=== PATIENT | female | born 1990 | race Caucasian/White ===

== ENCOUNTER 2016-07-12 07:30 | Inpatient (IN) | payer MEDICAID ==
[~2016-07-12] VITALS: Ht 160 cm; Wt 85.4 kg
[~2016-07-12 07:30] MED LIST: ACHD5005 PO; ACYC200C PO; ACYC400T21 PO; DCS100C PO; FERR-47 PO; Ibuprofen PO; LORA10TA7 PO; LORA5TAB9 PO; PREN-46 PO
[2016-09-16] MEDS ORDERED: FOLI0.4T2 PO (00:13)
[2016-09-16] MEDS ORDERED: CALC-308 PO (00:13)
[2016-10-13] MEDS ORDERED: METOCLOPRAMIDE INJ 10 MG/2 ML (REGLAN) ONE (02:17)
[2016-10-13] MEDS ORDERED: ceFAZolin 1,000 MG (ANCEF) VIAL ONE (02:18)
[2016-10-13] MEDS ORDERED: FAMOTIDINE 20MG/2ML IV (PEPCID) ONE (02:18)
[2016-10-13] MEDS ORDERED: CITRIC ACID/SOB CIT (BICITRA) 30 ML UDC ONE (02:18)
[2016-10-13] MEDS ORDERED: NS (IVPB) 50 ML ONE (02:18)
[2016-10-13] MEDS ORDERED: LACTATED RINGERS 1,000 ML IV PRN (06:11)
[2016-10-13] MEDS ORDERED: METOCLOPRAMIDE INJ 10 MG/2 ML (REGLAN) IV ONE (06:15)
[2016-10-13] MEDS ORDERED: CITRIC ACID/SOB CIT (BICITRA) 30 ML UDC PO ONE (06:15)
[2016-10-13] MEDS ORDERED: FAMOTIDINE 20MG/2ML IV (PEPCID) IV ONE (06:15)
[2016-10-13] MEDS ORDERED: CATHETER FLUSH 10 ML SYR IV PRN (06:15)
[2016-10-13] MEDS: LACTATED RINGERS 1,000 ML IV PRN ×2 (06:19→08:14)
[2016-10-13 06:37] LABS: BILIRUBIN,URINE NEGATIVE (NEGATIVE); KETONES,URINE NEGATIVE (NEGATIVE); LEUKOCYTE ESTERASE ,URINE NEGATIVE (NEGATIVE); NITRITE,URINE NEGATIVE (NEGATIVE); PH,URINE 6 (5-9); PROTEIN,URINE NEGATIVE (NEGATIVE); UROBILINOGEN,URINE NORMAL (NORMAL)
[2016-10-13 06:38] LABS: BASOPHILS % (AUTO) 0 % (0-10); EOSINOPHILS # (AUTO) 0.1 10^3/uL (0.0-0.3); EOSINOPHILS % (AUTO) 1 % (0-10); LYMPHOCYTES % (AUTO) 25 % (12-44); MEAN CORPUSCULAR HEMOGLOBIN 22 PG (25-34); MEAN CORPUSCULAR HGB CONC 31 G/DL (32-36); MEAN CORPUSCULAR VOLUME 71 FL (80-99); MEAN PLATELET VOLUME 10.2 FL (7.4-10.4); MONOCYTES # (AUTO) 0.5 X 10^3 (0.0-1.0); MONOCYTES % (AUTO) 6 % (0-12); NEUTROPHILS # (AUTO) 5.4 X 10^3 (1.8-7.8); NEUTROPHILS % (AUTO) 68 % (42-75); PLATELET COUNT 288 10^3/uL (130-400); RED BLOOD COUNT 4.34 10^6/uL (4.35-5.85); RED CELL DISTRIBUTION WIDTH 16.1 % (10.0-14.5)
[2016-10-13] MEDS ORDERED: OXYTOCIN/NORMAL SALINE 1,000 ML IV ONE (06:44)
[2016-10-13] MEDS ORDERED: fentaNYL INJECTION 100 MCG/2 ML AMP ONE (06:44)
[2016-10-13] MEDS ORDERED: ONDANSETRON 4 MG/2 ML (SDV) Z0FRAN ONE (06:44)
[2016-10-13 06:53] LABS: SQUAMOUS EPITHELIAL CELL,UR 0-2 /HPF; WBC,URINE RARE /HPF
[2016-10-13 07:00] VITALS: BP 131/79
--- NOTE | 2016-10-13 07:07 | Progress Note-Pre Operative ---
Pre-Operative Progress Note H&P Reviewed The H&P was reviewed, patient examined and no changes noted. Date H&P Reviewed: Oct 13, 2016 Time H&P Reviewed: 07:00 Pre-Operative Diagnosis: Previous section LIVIA LAZARO DO Oct 13, 2016 7:07 am
[2016-10-13] MEDS ORDERED: ceFAZolin 1 GM/NS 50 ML IVPB IV NR ×2 (08:15)
[2016-10-13] MEDS ORDERED: OXYTOCIN/NORMAL SALINE 500 ML IV SCH (08:21)
--- NOTE | 2016-10-13 08:23 | Cesarean Section Operative ---
Procedure Procedure Note Pre-operative Diagnosis: Milagro Arnold is a 26 /Para 3 /1 , Gestational Age 39 weeks for repeat section Post-operative Diagnosis: same Procedure: repeat low transverse section Physician: LIVIA LAZARO Checker Loader: LG Yanez Estimated blood loss: 400mL Disposition: stable Findings: Viable male infant, Apgars8/9 weight 7#6oz, intact placenta, 3vc, normal appearing uterus, tubes, and ovaries. Indications:Milagro Arnold is a 26 /Para 3 /1 ,Gestational Age 39 weeks for repeat section Procedure Details: The patient was seen in pre-op and the procedure was discussed with the patient in full, including the risks, benefits, and alternatives. All questions were answered. The patient was taken to the operating room and a time out was performed, verifying patient and procedure. After spinal anesthesia was placed by our anesthesia colleagues, the patient was placed in the dorsal supine with leftward tilt for uterine displacement.~ Her abdomen was then prepped and draped in the typical sterile fashion. A Pfannenstiel skin incision was made using a scalpel and carried down through the underlying fascia. The fascia was incised in the midline and tented up using Cleemnt clamps. On both the inferior and superior fascia side the rectus muscle was dissected off bluntly and sharply using Covington scissors. The peritoneum was identified and entered bluntly in the midline. This was then stretched laterally using manual strength. After entering the abdominal cavity and confirming lack of intraperitoneal adhesions, a large Dionicio retractor was placed and the lower uterine segment was visualized. A scalpel was utilized to make a low transverse uterine incision. Amniotomy was performed with an Allis clamp with return of clear fluid. The 's head was grasped and brought to the level of the incision and [id number] with assistance of the silastic suction. Fundal pressure was applied and was delivered without difficulty. Mouth and nares were suctioned with bulb suction. After the umbilical cord was clamped and cut, the was handed off to the pediatric staff. A sample of cord blood was then obtained. The placenta was delivered intact via uterine massage. The uterus was cleared of all clots and debris. The uterine incision was closed using 0 Vicryl in a running locked fashion. A second imbricated layer was placed using 0 Vicryl in a running fashion as well. The bilateral tubes and ovaries appeared normal. The abdominal gutters were cleared of all clots and debris. A final check of the uterine incision showed it to be hemostatic. The peritoneum was closed using 3- 0 Vicryl in a running fashion. The fascia was closed with 0 Vicryl in a running fashion. The subcutaneous space was hemostatic, and irrigated. The subcutaneous space was closed with 3-0 Vicryl in several single interrupted stitches. The skin was then closed using 4-0 Monocryl in a running subcuticular fashion. The skin edges were reapproximated together and were hemostatic. A pressure dressing was applied. All sponge, lap and needle counts were correct at the end of the procedure per nursing. Vitals - Labs Labs Laboratory Tests 10/13/16 06:20: Basophils # (Auto) 0.0, Basophils (%) (Auto) 0, Eosinophils # (Auto) 0.1, Eosinophils (%) (Auto) 1, Hematocrit 31L, Hemoglobin 9.6L, Lymphocytes # (Auto) 2.0, Lymphocytes (%) (Auto) 25, Mean Corpuscular Hemoglobin 22L, Mean Corpuscular Hemoglobin Concent 31L, Mean Corpuscular Volume 71L, Mean Platelet Volume 10.2, Monocytes # (Auto) 0.5, Monocytes (%) (Auto) 6, Neutrophils # (Auto ) 5.4, Neutrophils (%) (Auto) 68, Platelet Count 288, Red Blood Count 4.34L, Red Cell Distribution Width 16.1H, Urine Bacteria NEGATIVE, Urine Bilirubin NEGATIVE, Urine Casts NONE, Urine Clarity SLIGHTLY CLOUDY, Urine Color YELLOW, Urine Crystals NONE, Urine Culture Indicated NO, Urine Glucose (UA) NEGATIVE, Urine Ketones NEGATIVE, Urine Leukocyte Esterase NEGATIVE, Urine Mucus NEGATIVE , Urine Nitrite NEGATIVE, Urine Protein NEGATIVE, Urine RBC NONE, Urine RBC ( Auto) NEGATIVE, Urine Specific [place] 1.025H, Urine Squamous Epithelial Cells 0 -2, Urine Urobilinogen NORMAL, Urine WBC RARE, Urine pH 6, White Blood Count 8.0 LIVIA LAZARO DO Oct 13, 2016 08:23 -2, Urine Urobilinogen NORMAL, Urine WBC RARE, Urine pH 6, White Blood Count 8.0 LIVIA LAZARO DO Oct 13, 2016 08:23
[2016-10-13] MEDS ORDERED: IBUP-1773 PO (08:25)
[2016-10-13] MEDS ORDERED: HYDR-3729 PO (08:25)
[2016-10-13] MEDS ORDERED: ONDANSETRON 4 MG/2 ML (SDV) Z0FRAN IVP PRN (08:30)
[2016-10-13] MEDS ORDERED: TETANUS,DIPTH,PERTUSS P/F (BOOSTRIX) 0.5 ML VIAL IM SCH (08:30)
[2016-10-13] MEDS ORDERED: HYDROmorphone (DILAUDID) 2 MG/ML VIAL IVP PRN (08:30)
[2016-10-13] MEDS ORDERED: MEASLES,MUMPS,RUBELLA 1 EA INJ SC SCH (08:30)
[2016-10-13 09:50] VITALS: BP 116/81
[2016-10-13 11:00] VITALS: BP 120/76
[2016-10-13] MEDS: KETOROLAC 30 MG/ML VIAL IVP SCH ×2 (11:20→18:04)
[2016-10-13] MEDS ORDERED: CATHETER FLUSH 10 ML SYR IV SCH (14:00)
[2016-10-13] MEDS: HYDROcodone/APAP 5 MG/325 MG (LORTAB) TAB PO PRN ×2 (14:50→21:44)
[2016-10-13] MEDS: FERROUS SULF 325 MG (IRON) TAB PO SCH (18:04)
[2016-10-13 20:30] VITALS: BP 111/69
[2016-10-13] MEDS: DOCUSATE SODIUM 100 MG (COLACE) CAP PO SCH (21:43)
[2016-10-14] MEDS: KETOROLAC 30 MG/ML VIAL IVP SCH ×2 (00:09→06:20)
[2016-10-14 00:10] VITALS: BP 111/69
[2016-10-14] MEDS: DOCUSATE SODIUM 100 MG (COLACE) CAP PO SCH ×3 (02:51→21:00)
[2016-10-14] MEDS: HYDROcodone/APAP 5 MG/325 MG (LORTAB) TAB PO PRN ×3 (02:54→15:59)
[2016-10-14 04:00] VITALS: BP 104/71
[2016-10-14] MEDS ORDERED: METOCLOPRAMIDE INJ 10 MG/2 ML (REGLAN) IV ONE (04:30)
[2016-10-14] MEDS ORDERED: FAMOTIDINE 20MG/2ML IV (PEPCID) IV ONE (04:30)
[2016-10-14] MEDS ORDERED: CITRIC ACID/SOB CIT (BICITRA) 30 ML UDC PO ONE (04:30)
[2016-10-14] MEDS ORDERED: KETOROLAC 30 MG/ML VIAL ONE (06:07)
[2016-10-14 07:07] LABS: BASOPHILS % (AUTO) 0 % (0-10); EOSINOPHILS # (AUTO) 0.1 10^3/uL (0.0-0.3); EOSINOPHILS % (AUTO) 1 % (0-10); LYMPHOCYTES # (AUTO) 2.5 X 10^3 (1.0-4.0); LYMPHOCYTES % (AUTO) 26 % (12-44); MEAN CORPUSCULAR HEMOGLOBIN 23 PG (25-34); MEAN CORPUSCULAR HGB CONC 32 G/DL (32-36); MEAN CORPUSCULAR VOLUME 70 FL (80-99); MEAN PLATELET VOLUME 9.7 FL (7.4-10.4); MONOCYTES # (AUTO) 0.7 X 10^3 (0.0-1.0); MONOCYTES % (AUTO) 7 % (0-12); NEUTROPHILS # (AUTO) 6.3 X 10^3 (1.8-7.8); NEUTROPHILS % (AUTO) 65 % (42-75); PLATELET COUNT 238 10^3/uL (130-400); RED CELL DISTRIBUTION WIDTH 16.2 % (10.0-14.5); WHITE BLOOD COUNT 9.6 10^3/uL (4.3-11.0)
--- NOTE | 2016-10-14 08:26 | Progress Note-Standard ---
Standard Progress Note Progress Notes/Assess & Plan Progress/Assessment & Plan Patient doing well this AM. Pain well controlled. Ambulating and voiding freely. Lochia light. Denies lightheadedness/dizziness. Vital Signs 10/14/16 04:00 Temp 97.9 Pulse 82 Resp 18 B/P 104/71 Pulse Ox 97 O2 Delivery Room Air Laboratory Tests Test 10/14/16 06:50 Range/Units Basophils # (Auto) 0.0 0.0-0.1 10^3/uL Basophils (%) (Auto) 0 0-10 % Eosinophils # (Auto) 0.1 0.0-0.3 10^3/uL Eosinophils (%) (Auto) 1 0-10 % Hematocrit 27 L 35-52 % Hemoglobin 8.6 L 11.5-16.0 G/DL Lymphocytes # (Auto) 2.5 1.0-4.0 X 10^3 Lymphocytes (%) (Auto) 26 12-44 % Mean Corpuscular Hemoglobin 23 L 25-34 PG Mean Corpuscular Hemoglobin Concent 32 32-36 G/DL Mean Corpuscular Volume 70 L 80-99 FL Mean Platelet Volume 9.7 7.4-10.4 FL Monocytes # (Auto) 0.7 0.0-1.0 X 10^3 Monocytes (%) (Auto) 7 0-12 % Neutrophils # (Auto) 6.3 1.8-7.8 X 10^3 Neutrophils (%) (Auto) 65 42-75 % Platelet Count 238 130-400 10^3/uL Red Blood Count 3.80 L 4.35-5.85 10^6/uL Red Cell Distribution Width 16.2 H 10.0-14.5 % White Blood Count 9.6 4.3-11.0 10^3/uL Incision: c/d/i Diagnosis: POD 1 RLTCS Acute blood loss anemia (superimposed on anemia of ) P: Replace iron Continue routine po care. BURTON DOMINGUEZ DO Oct 14, 2016 08:26
[2016-10-14 08:31] VITALS: BP 112/73
[2016-10-14] MEDS: FERROUS SULF 325 MG (IRON) TAB PO SCH ×2 (09:15→18:00)
[2016-10-14] MEDS: IBUPROFEN 600 MG (MOTRIN) TAB PO SCH ×2 (11:06→17:58)
[2016-10-14 12:25] VITALS: BP 110/67
[2016-10-14 17:57] VITALS: BP 131/88
[2016-10-14 19:20] VITALS: BP 130/75
[2016-10-15 00:01] VITALS: BP 112/70
[2016-10-15] MEDS: IBUPROFEN 600 MG (MOTRIN) TAB PO SCH ×3 (06:15→12:34)
[2016-10-15 07:49] VITALS: BP 144/90
[2016-10-15] MEDS: DOCUSATE SODIUM 100 MG (COLACE) CAP PO SCH (07:51)
[2016-10-15] MEDS: HYDROcodone/APAP 5 MG/325 MG (LORTAB) TAB PO PRN (07:51)
[2016-10-15] MEDS: FERROUS SULF 325 MG (IRON) TAB PO SCH (07:51)
--- NOTE | 2016-10-15 08:18 | Discharge Inst-Women's Service ---
Discharge Inst-Women's Serv Depart Medication/Instructions New, Converted or Re-Newed RX: RX on Chart Consults/Follow Up Additional Follow Up: Yes Orders/Referrals Dr. Garcia in 7-10 days and in 6 weeks Activity Activity: Activity as Tolerated Driving Instructions: No Driving for 1 Week NO SMOKING: NO SMOKING Nothing Inside Vagina: No Douching, No [place], No Tampons Diet Discharge Diet: No Restrictions Symptoms to Report to : Bleeding Excessive, Pain Increased, Fever Over 101 Degrees F, Vaginal Bleeding Increase, Questions/Concerns For Any Problems or Questions: Contact Your Physician Skin/Wound Care Infection Signs and Symptoms: Increased Redness, Foul Odor of Wound, Increased Drainage, Skin Itchy or Has a Rash, Increased Swelling, Temperature Above 101 F Operative Area Clean and Dry: Keep Incision Clean/Dry Stitches/Maddy/Dermabond: Dermabond, Care of Stitches Bathing Instructions: BURTON Bang DO Oct 15, 2016 08:18
--- NOTE | 2016-10-15 08:25 | Progress Note-Standard ---
Standard Progress Note Progress Notes/Assess & Plan Progress/Assessment & Plan Patient doing well this AM. Pain well controlled. Ambulating and voiding freely. Lochia light. Denies lightheadedness/dizziness. Vital Sign - Last 12Hours 10/15/16 10/15/16 00:01 07:49 Temp 98.2 97.7 Pulse 94 109 Resp 18 18 B/P 112/70 144/90 Pulse Ox 97 98 O2 Delivery Room Air Room Air Intake and Output 10/15/16 00:00 Intake Total 1020 ml Output Total 2400 ml Balance -1380 ml Incision: c/d/i Diagnosis: POD 2 RLTCS Acute blood loss anemia (superimposed on anemia of ) P: Replace iron Continue routine po care. BURTON DOMINGUEZ DO Oct 15, 2016 08:25
--- NOTE | 2016-10-16 14:46 | Anesthesia-Regional Post-Op ---
Regional Patient Condition Mental Status: Alert, Oriented x3 Circulation: Same as Pre-Op Headache: Absent Sensation: Full Recovery Motor Block: Absent Post Op Complications Complications None Follow Up Care/Instructions Patient Instructions None needed. Anesthesia/Patient Condition Patient is already discharged to home. Attempted to call patient but did not answer so left a message. According to nursing notes, she was ambulating without difficulty and doing well, stable for discharge. NALLELY LY DO Oct 16, 2016 14:46
--- NOTE | 2016-10-17 15:14 | Physician Query-Final Dx ---
LUCIO GARRIDO 10/17/16 1514: Final Diagnosis Give Final Diagnosis Please give Final Diagnosis LIVIA LAZARO DO 11/01/16 1650: Final Diagnosis Give Final Diagnosis previous seciton LUCIO GARRIDO Oct 17, 2016 15:14 LIVIA LAZARO DO Nov 01, 2016 16:50
== END 2016-10-15 12:45 | disposition home or self-care (01) | DRG 765 ==
LOC: LDRP 10-13 05:59
PROVIDERS: ADMIT Obstetrics & Gynecology; ATTEND Obstetrics & Gynecology
PROC: 10D00Z1 Extraction of Products of Conception, Low, Open Approach (ICD-10-PCS; principal; 2016-10-13 07:28)
DX: O34.211 Maternal care for low transverse scar from previous cesarean delivery (principal); O99.013 Anemia complicating pregnancy, third trimester; O99.03 Anemia complicating the puerperium; D62 Acute posthemorrhagic anemia; Z3A.39 39 weeks gestation of pregnancy; Z37.0 Single live birth; Z23 Encounter for immunization
CPT/HCPCS: 36415; 81000; 85025; 86850; 86900; 86901; 90715; 94664

== ENCOUNTER 2016-10-09 13:33 | Outpatient (CLI) | payer MEDICAID ==
[~2016-10-09] VITALS: Ht 160 cm; Wt 84.9 kg
[~2016-10-09 13:33] MED LIST changes: +CALC-308 PO; +FOLI0.4T2 PO
[2016-10-09 13:41] VITALS: BP 126/75
== END 2016-10-09 13:55 | disposition home or self-care (01) ==
LOC: PREOP 13:33
PROVIDERS: ATTEND Obstetrics & Gynecology
DX: Z01.818 Encounter for other preprocedural examination (principal); Z11.2 Encounter for screening for other bacterial diseases; O34.219 Maternal care for unspecified type scar from previous cesarean delivery
CPT/HCPCS: 87081

== ENCOUNTER 2017-10-16 09:52 | Inpatient (IN) | payer MEDICAID ==
[2017-10-16] VITALS (10 sets, daily range): BP systolic 66–162; BP diastolic 66–83
[~2017-10-16] VITALS: Ht 160 cm; Wt 85.3 kg
[~2017-10-16 09:52] MED LIST changes: +HYDR-3729 PO; +IBUP-1773 PO
[2017-10-16 10:17] LABS: BILIRUBIN,URINE NEGATIVE (NEGATIVE); CLARITY,URINE CLEAR; COLOR,URINE YELLOW; GLUCOSE, URINE (UA) NEGATIVE (NEGATIVE); KETONES,URINE NEGATIVE (NEGATIVE); LEUKOCYTE ESTERASE ,URINE NEGATIVE (NEGATIVE); NITRITE,URINE NEGATIVE (NEGATIVE); PH,URINE 7 (5-9); PROTEIN,URINE NEGATIVE (NEGATIVE); UROBILINOGEN,URINE NORMAL (NORMAL)
[2017-10-16 10:28] LABS: BACTERIA,URINE MODERATE /HPF; RBC,URINE RARE /HPF; SQUAMOUS EPITHELIAL CELL,UR 25-50 /HPF
[2017-10-16] MEDS ORDERED: FLUT9.9S NS (10:29)
[2017-10-16] MEDS ORDERED: ACYC400T PO (10:29)
[2017-10-16] MEDS ORDERED: SERT50TA2 PO (10:29)
[2017-10-16] MEDS ORDERED: TERC20CR5 VG (10:29)
[2017-10-16] MEDS ORDERED: DOXY25TA46 PO (10:29)
[2017-10-16] MEDS ORDERED: LACTATED RINGERS 1,000 ML IV PRN (11:59)
[2017-10-16] MEDS ORDERED: METOCLOPRAMIDE INJ 10 MG/2 ML (REGLAN) IV ONE (12:00)
[2017-10-16] MEDS ORDERED: FAMOTIDINE 20MG/2ML IV (PEPCID) IV ONE (12:00)
[2017-10-16] MEDS ORDERED: CITRIC ACID/SOB CIT (BICITRA) 30 ML UDC PO ONE (12:00)
[2017-10-16] MEDS ORDERED: ceFAZolin 2 GM/50 ML NS 50 ML IV ONE (12:00)
--- NOTE | 2017-10-16 12:06 | History & Physical-OB ---
OB - Chief Complaint & HPI Date/Time Date of Admission: Date of Admission: Time Seen by Provider: 11:55 Chief Complaint/History OB-Reason for Admission/Chief: Section (Patient is scheduled for repeat section on 10/26/18. presented with complaint of contractions starting last night but worsening today. Currently sanjeev every 2-3 minutes. No cerivcal change, but continues contractions. Occasional variable decelerations. Plan to repeat section today. Last ate last night. Water and hot tea this am.,) Hx : 4 Hx Para: 2 Expected Date of Delivery: Nov 02, 2017 Gestational Age in Weeks: 37 Gestational Age in Days: 4 Indication for : desires repeat Other reason for admission: Previous cs x 2. History of Labs See Acog Other GBS - Allergies and Home Medications Allergies Coded Allergies: No Known Drug Allergies (Unverified , 02/24/14) Home Medications Acyclovir 400 Mg Tablet, 400 MG PO BID, (Reported) Calcium Carbonate 500 Mg Tab.chew, 500 MG PO DAILY, (Reported) Doxylamine Succinate 25 Mg Tablet, 25 MG PO HS, (Reported) Ferrous Sulfate 325 ( Tablet, 325 MG PO HS, (Reported) Fluticasone Propionate 9.9 Ml [place].susp, 1 SPR NS DAILY, (Reported) Vit/Fe Fumarate/Fa 1 Each Tablet, 1 TAB PO HS, (Reported) Sertraline HCl 50 Mg Tablet, 50 MG PO DAILY, (Reported) Terconazole 20 Gm Cream.appl, 1 SYRINGE VG HS for 7 Days, (Reported) OB - History Hx of Present Care: Yes Ultrasounds: Normal mid trimester US Obstetrical Complications: None Medical Complications: None Information Induced Hypertension: No Maternal Gestational Diabetes: No Hemorrhage: No Obstetrical History Hx : 4 Hx Para: 2 Hx Termination: No Hx Total # of Abortions (Spona: 1 Hx Multiple Gestation: No Hx Induced Hypertens: Yes (induced due to ) Delivery History Hx Section: Yes (2) Hx Blood Disorders: Yes (ANEMIA WITH THIS ) Patient Past Medical History NC Social History/Family History HIV/AIDS: No Recent Infectious Disease Expo: Yes 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, 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) Alcohol Use: Denies Use Smoking Cessation: Former smoker Immunizations Hepatitis A: No Hepatitis B: No Tetanus Booster (TDap): More than 5yrs Date of Influenza Vaccine: Sep 02, 2016 Rubella: immune RPR/VDRL: Negative GBS Status: Negative HBsAG: Negative OB - Admission Exam Physical Exam Vitals: Vital Signs 10/16/17 10/16/17 10:00 10:30 Temp 97.3 Pulse 64 Resp 20 B/P (MAP) 66/80 (75) HEENT: NCAT Lungs: Clear Abdomen: Gravid Extremities: Normal Cervical Dilatation: 1cm Effacement: 50% Station: -3 Membranes: Intact Heart Rate: 140's Accelerations: Accelerations Present Decelerations: Variable Decelerations Short Term Variability: Present Sourcer Variability: Average (6-25) Contractions on Admission: < 5 Minutes Apart Intensity: Moderate Labs Laboratory Tests Test 10/16/17 10:02 Range/Units Urine Color YELLOW Urine Clarity CLEAR Urine pH 7 5-9 Urine Specific [place] 1.005 L 1.016-1.022 Urine Protein NEGATIVE NEGATIVE Urine Glucose (UA) NEGATIVE NEGATIVE Urine Ketones NEGATIVE NEGATIVE Urine Nitrite NEGATIVE NEGATIVE Urine Bilirubin NEGATIVE NEGATIVE Urine Urobilinogen NORMAL NORMAL MG/DL Urine Leukocyte Esterase NEGATIVE NEGATIVE Urine RBC (Auto) NEGATIVE NEGATIVE Urine RBC RARE /HPF Urine WBC 2-5 /HPF Urine Squamous Epithelial Cells 25-50 H /HPF Urine Crystals NONE /LPF Urine Bacteria MODERATE H /HPF Urine Casts NONE /LPF Urine Mucus NEGATIVE /LPF Urine Culture Indicated NO OB - Assessment/Plan/Diagnosis Assessment Assessment: active labor, section Plan Plan: Section (Plan repeat CS. Risks of bleeding, infeciton, injury to bowel, bladder andureter explained to patient and understands. Consent signed. Prophylactic antibiotics and SCDs. Requests [facility] for anesthesia. LIVIA Esposito DO Oct 16, 2017 12:06 pm
[2017-10-16 12:59] LABS: BASOPHILS % (AUTO) 0 % (0-10); EOSINOPHILS % (AUTO) 0 % (0-10); HEMATOCRIT 33 % (35-52); HEMOGLOBIN 10.6 G/DL (11.5-16.0); LYMPHOCYTES # (AUTO) 2.2 X 10^3 (1.0-4.0); LYMPHOCYTES % (AUTO) 22 % (12-44); MEAN CORPUSCULAR HEMOGLOBIN 22 PG (25-34); MEAN CORPUSCULAR HGB CONC 32 G/DL (32-36); MEAN CORPUSCULAR VOLUME 68 FL (80-99); MEAN PLATELET VOLUME 10.1 FL (7.4-10.4); MONOCYTES # (AUTO) 0.4 X 10^3 (0.0-1.0); MONOCYTES % (AUTO) 4 % (0-12); NEUTROPHILS # (AUTO) 7.3 X 10^3 (1.8-7.8); NEUTROPHILS % (AUTO) 74 % (42-75); PLATELET COUNT 296 10^3/uL (130-400); RED BLOOD COUNT 4.83 10^6/uL (4.35-5.85); RED CELL DISTRIBUTION WIDTH 16.8 % (10.0-14.5)
[2017-10-16] MEDS ORDERED: fentaNYL INJECTION 100 MCG/2 ML AMP ONE (14:02)
[2017-10-16] MEDS ORDERED: OXYTOCIN/NORMAL SALINE 500 ML IV SCH (14:11)
[2017-10-16] MEDS ORDERED: TETANUS,DIPTH,PERTUSS P/F (BOOSTRIX) 0.5 ML VIAL IM SCH (14:15)
[2017-10-16] MEDS ORDERED: HYDROmorphone (DILAUDID) 2 MG/ML VIAL IVP PRN (14:15)
[2017-10-16] MEDS ORDERED: MEASLES,MUMPS,RUBELLA 1 EA INJ SC SCH (14:15)
[2017-10-16] MEDS ORDERED: OXYTOCIN/NORMAL SALINE 1,000 ML IV ONE (14:50)
--- NOTE | 2017-10-16 14:54 | Cesarean Section Operative ---
Procedure Procedure Note Pre-operative Diagnosis: Milagro Arnold is a 27 /Para 4 / 2, Gestational Age 37 4/7 with history of previous section in labor. Post-operative Diagnosis: same, thin meconium Procedure: Repeat low transverse section Physician: LIVIA LAZARO Loan Originator: MADHAVI Gray Estimated blood loss: 500 mL Disposition: stable Findings: Viable female , Apgars 9/9, weightpending, intact placenta, 3vc, normal appearing uterus, tubes, and ovaries. Indications:Milagro Arnold is a 27 /Para 4 / 2,Gestational Age 37 4/7 with history of previous section in labor. Procedure Details: The patient was seen in pre-op and the procedure was discussed with the patient in full, including the risks, benefits, and alternatives. All questions were answered. The patient was taken to the operating room and a time out was performed, verifying patient and procedure. After spinal anesthesia was placed by our anesthesia colleagues, the patient was placed in the dorsal supine with leftward tilt for uterine displacement.~ Her abdomen was then prepped and draped in the typical sterile fashion. A Pfannenstiel skin incision was made using a scalpel and carried down through the underlying fascia. The fascia was incised in the midline and tented up using Clement clamps. On both the inferior and superior fascia side the rectus muscle was dissected off bluntly and sharply using Covington scissors. The peritoneum was identified and entered bluntly in the midline. This was then stretched laterally using manual strength. After entering the abdominal cavity and confirming lack of intraperitoneal adhesions, a large Dionicio retractor was placed and the lower uterine segment was visualized. The bladder was advanced over the lower uterine segment. A bladder flap was created with the use of Metzenbaum scissors. The lower uterine segment was very thin, but there was not a uterine window.~ A scalpel was utilized to make a low transverse uterine incision. Amniotomy was performed with an Allis clamp with return of clear fluid. The 's head was grasped and brought to the level of the incision. Fundal pressure was applied and was delivered without difficulty. Mouth and nares were suctioned with bulb suction. After the umbilical cord was clamped and cut, the infant was handed off to the pediatric staff. A sample of cord blood was then obtained. The placenta was delivered intact via uterine massage. The uterus was cleared of all clots and debris. The uterine incision was closed using 0 Vicryl in a running locked fashion. A second imbricated layer was placed using 0 Vicryl in a running fashion as well. The bilateral tubes and ovaries appeared normal. The gutters were cleared of all clots and debris. A final check of the uterine incision showed it to be hemostatic. The peritoneum was closed using 3-0 Vicryl in a running fashion. The fascia was closed with 0 Vicryl in a running fashion. The subcutaneous space was hemostatic, and irrigated. The subcutaneous space was closed with 3-0 Vicryl in several single interrupted stitches. The skin was then closed using 4-0 Monocryl in a running subcuticular fashion. The skin edges were reapproximated together and were hemostatic. A pressure dressing was applied. All sponge, lap and needle counts were correct at the end of the procedure per nursing. Vitals - Labs Vital Signs - I&O Vital Signs Date Time Temp Pulse Resp B/P (MAP) Pulse Ox O2 Delivery O2 Flow Rate FiO2 10/16/17 11:50 20 10/16/17 11:30 67 20 134/76 (95) 10/16/17 11:00 74 20 126/68 (87) 10/16/17 10:30 64 20 66/80 (75) 10/16/17 10:00 97.3 82 20 141/80 (100) Labs Laboratory Tests 10/16/17 10:02: Urine Color YELLOW, Urine Clarity CLEAR, Urine pH 7, Urine Specific [place] 1.005L, Urine Protein NEGATIVE, Urine Glucose (UA) NEGATIVE, Urine Ketones NEGATIVE, Urine Nitrite NEGATIVE, Urine Bilirubin NEGATIVE, Urine Urobilinogen NORMAL, Urine Leukocyte Esterase NEGATIVE, Urine RBC (Auto) NEGATIVE, Urine RBC RARE, Urine WBC 2-5, Urine Squamous Epithelial Cells 25-50H, Urine Crystals NONE , Urine Bacteria MODERATEH, Urine Casts NONE, Urine Mucus NEGATIVE, Urine Culture Indicated NO 10/16/17 12:38: White Blood Count 10.0, Red Blood Count 4.83, Hemoglobin 10.6L, Hematocrit 33L, Mean Corpuscular Volume 68L, Mean Corpuscular Hemoglobin 22L, Mean Corpuscular Hemoglobin Concent 32, Red Cell Distribution Width 16.8H, Platelet Count 296, Mean Platelet Volume 10.1, Neutrophils (%) (Auto) 74, Lymphocytes (%) (Auto) 22 , Monocytes (%) (Auto) 4, Eosinophils (%) (Auto) 0, Basophils (%) (Auto) 0, Neutrophils # (Auto) 7.3, Lymphocytes # (Auto) 2.2, Monocytes # (Auto) 0.4, Eosinophils # (Auto) 0.0, Basophils # (Auto) 0.0 LIVIA LAZARO DO Oct 16, 2017 14:54
[2017-10-16] MEDS: HYDROcodone/APAP 5 MG/325 MG (LORTAB) TAB PO PRN ×2 (17:08→21:02)
[2017-10-16] MEDS: KETOROLAC 30 MG/ML VIAL IVP SCH (17:08)
[2017-10-16] MEDS ORDERED: INFLUENZA TRIvalent 2017-2018 0.5 ML/45 MCG SYR IM ONE (20:15)
[2017-10-16] MEDS: DOCUSATE SODIUM 100 MG (COLACE) CAP PO SCH (21:01)
[2017-10-17] MEDS: KETOROLAC 30 MG/ML VIAL IVP SCH ×2 (00:27→05:48)
[2017-10-17] MEDS: HYDROcodone/APAP 5 MG/325 MG (LORTAB) TAB PO PRN ×4 (00:27→22:44)
[2017-10-17 00:35] VITALS: BP 135/80
[2017-10-17 05:50] VITALS: BP 117/78
[2017-10-17 05:56] LABS: BASOPHILS % (AUTO) 0 % (0-10); EOSINOPHILS # (AUTO) 0.1 10^3/uL (0.0-0.3); EOSINOPHILS % (AUTO) 1 % (0-10); HEMATOCRIT 24 % (35-52); HEMOGLOBIN 7.5 G/DL (11.5-16.0); LYMPHOCYTES # (AUTO) 2.3 X 10^3 (1.0-4.0); LYMPHOCYTES % (AUTO) 25 % (12-44); MEAN CORPUSCULAR HEMOGLOBIN 22 PG (25-34); MEAN CORPUSCULAR HGB CONC 32 G/DL (32-36); MEAN CORPUSCULAR VOLUME 69 FL (80-99); MEAN PLATELET VOLUME 10.1 FL (7.4-10.4); MONOCYTES # (AUTO) 0.6 X 10^3 (0.0-1.0); MONOCYTES % (AUTO) 6 % (0-12); NEUTROPHILS # (AUTO) 6.3 X 10^3 (1.8-7.8); NEUTROPHILS % (AUTO) 68 % (42-75); PLATELET COUNT 235 10^3/uL (130-400); RED BLOOD COUNT 3.43 10^6/uL (4.35-5.85); WHITE BLOOD COUNT 9.3 10^3/uL (4.3-11.0)
[2017-10-17 08:00] VITALS: BP 127/84
--- NOTE | 2017-10-17 08:26 | Postpartum Progress Note ---
Post Op Post-operative Day #1 s/p RLTCS Subjective: Patient is without complaints. Ambulating, voiding after hurt removed. Tolerating a regular diet without nausea or vomiting. Normal lochia. Pain is well controlled with oral pain medications. Passing flatus. bottle feeding Objective: Laboratory Tests Test 10/16/17 10:02 10/16/17 12:38 10/17/17 05:29 Range/Units Urine Color YELLOW Urine Clarity CLEAR Urine pH 7 5-9 Urine Specific [place] 1.005 L 1.016-1.022 Urine Protein NEGATIVE NEGATIVE Urine Glucose (UA) NEGATIVE NEGATIVE Urine Ketones NEGATIVE NEGATIVE Urine Nitrite NEGATIVE NEGATIVE Urine Bilirubin NEGATIVE NEGATIVE Urine Urobilinogen NORMAL NORMAL MG/DL Urine Leukocyte Esterase NEGATIVE NEGATIVE Urine RBC (Auto) NEGATIVE NEGATIVE Urine RBC RARE /HPF Urine WBC 2-5 /HPF Urine Squamous Epithelial Cells 25-50 H /HPF Urine Crystals NONE /LPF Urine Bacteria MODERATE H /HPF Urine Casts NONE /LPF Urine Mucus NEGATIVE /LPF Urine Culture Indicated NO White Blood Count 10.0 9.3 4.3-11.0 10^3/uL Red Blood Count 4.83 3.43 L 4.35-5.85 10^6/uL Hemoglobin 10.6 L 7.5 #L 11.5-16.0 G/DL Hematocrit 33 L 24 L 35-52 % Mean Corpuscular Volume 68 L 69 L 80-99 FL Mean Corpuscular Hemoglobin 22 L 22 L 25-34 PG Mean Corpuscular Hemoglobin Concent 32 32 32-36 G/DL Red Cell Distribution Width 16.8 H 16.0 H 10.0-14.5 % Platelet Count 296 235 130-400 10^3/uL Mean Platelet Volume 10.1 10.1 7.4-10.4 FL Neutrophils (%) (Auto) 74 68 42-75 % Lymphocytes (%) (Auto) 22 25 12-44 % Monocytes (%) (Auto) 4 6 0-12 % Eosinophils (%) (Auto) 0 1 0-10 % Basophils (%) (Auto) 0 0 0-10 % Neutrophils # (Auto) 7.3 6.3 1.8-7.8 X 10^3 Lymphocytes # (Auto) 2.2 2.3 1.0-4.0 X 10^3 Monocytes # (Auto) 0.4 0.6 0.0-1.0 X 10^3 Eosinophils # (Auto) 0.0 0.1 0.0-0.3 10^3/uL Basophils # (Auto) 0.0 0.0 0.0-0.1 10^3/uL Vital Sign - Last 12Hours 10/16/17 10/16/17 10/17/17 10/17/17 21:00 21:01 00:35 05:50 Temp 98.3 97.1 97.1 Pulse 88 68 76 Resp 18 18 18 B/P (MAP) 125/66 (85) 135/80 (98) 117/78 (91) Pulse Ox 97 96 O2 Delivery Room Air Room Air Room Air Intake and Output 10/17/17 00:00 Intake Total 500 ml Output Total 700 ml Balance -200 ml Physical Exam: General - Alert and oriented, no apparent distress Abdomen - Soft, appropriately tender to palpation, non-distended, fundus firm at umbilicus Incision - clean, dry and intact; no erythema or induration, no drainage Extremities - no edema, negative Felicity's bilaterally Assessment: 1. post-operative day # 1, status post RLTCS. Recovering well, hemodynamically stable 2. Acute blood loss anemia Plan: Routine post-operative care. Encourage breast feeding. Encourage ambulation. VTE prophylaxis: SCDs. Ferrous sulfate supplementation. Plan for discharge tomorrow Vitals - Labs Vital Signs - I&O Vital Signs Date Time Temp Pulse Resp B/P (MAP) Pulse Ox O2 Delivery O2 Flow Rate FiO2 10/17/17 05:50 97.1 76 18 117/78 (91) 10/17/17 00:35 97.1 68 18 135/80 (98) 96 Room Air 10/16/17 21:01 Room Air 10/16/17 21:00 98.3 88 18 125/66 (85) 97 Room Air 10/16/17 16:10 98.2 58 18 138/71 (93) 98 Room Air 10/16/17 13:30 98.9 81 18 128/79 (95) Room Air 10/16/17 13:00 86 18 134/82 (99) Room Air 10/16/17 12:30 86 18 136/83 (100) Room Air 10/16/17 12:00 98.6 79 20 162/73 (102) Room Air 10/16/17 11:50 20 1/23/18 11:30 67 20 134/76 (95) 10/16/17 11:00 74 20 126/68 (87) 10/16/17 10:30 64 20 66/80 (75) 10/16/17 10:00 97.3 82 20 141/80 (100) I & O 10/17/17 07:00 Intake Total 1000 ml Output Total 1500 ml Balance -500 ml Labs Laboratory Tests 10/16/17 10:02: Urine Color YELLOW, Urine Clarity CLEAR, Urine pH 7, Urine Specific [place] 1.005L, Urine Protein NEGATIVE, Urine Glucose (UA) NEGATIVE, Urine Ketones NEGATIVE, Urine Nitrite NEGATIVE, Urine Bilirubin NEGATIVE, Urine Urobilinogen NORMAL, Urine Leukocyte Esterase NEGATIVE, Urine RBC (Auto) NEGATIVE, Urine RBC RARE, Urine WBC 2-5, Urine Squamous Epithelial Cells 25-50H, Urine Crystals NONE , Urine Bacteria MODERATEH, Urine Casts NONE, Urine Mucus NEGATIVE, Urine Culture Indicated NO 10/16/17 12:38: White Blood Count 10.0, Red Blood Count 4.83, Hemoglobin 10.6L, Hematocrit 33L, Mean Corpuscular Volume 68L, Mean Corpuscular Hemoglobin 22L, Mean Corpuscular Hemoglobin Concent 32, Red Cell Distribution Width 16.8H, Platelet Count 296, Mean Platelet Volume 10.1, Neutrophils (%) (Auto) 74, Lymphocytes (%) (Auto) 22 , Monocytes (%) (Auto) 4, Eosinophils (%) (Auto) 0, Basophils (%) (Auto) 0, Neutrophils # (Auto) 7.3, Lymphocytes # (Auto) 2.2, Monocytes # (Auto) 0.4, Eosinophils # (Auto) 0.0, Basophils # (Auto) 0.0 10/17/17 05:29: White Blood Count 9.3, Red Blood Count 3.43L, Hemoglobin 7.5#L, Hematocrit 24L, Mean Corpuscular Volume 69L, Mean Corpuscular Hemoglobin 22L, Mean Corpuscular Hemoglobin Concent 32, Red Cell Distribution Width 16.0H, Platelet Count 235, Mean Platelet Volume 10.1, Neutrophils (%) (Auto) 68, Lymphocytes (%) (Auto) 25 , Monocytes (%) (Auto) 6, Eosinophils (%) (Auto) 1, Basophils (%) (Auto) 0, Neutrophils # (Auto) 6.3, Lymphocytes # (Auto) 2.3, Monocytes # (Auto) 0.6, Eosinophils # (Auto) 0.1, Basophils # (Auto) 0.0 Microbiology 10/16/17 Urine Culture - Preliminary, LIVIA Wong DO Oct 17, 2017 08:26
[2017-10-17] MEDS: FERROUS SULF 325 MG (IRON) TAB PO SCH ×2 (08:51→17:03)
[2017-10-17] MEDS: DOCUSATE SODIUM 100 MG (COLACE) CAP PO SCH ×2 (08:51→20:31)
[2017-10-17 12:00] VITALS: BP 117/71
[2017-10-17] MEDS: IBUPROFEN 600 MG (MOTRIN) TAB PO SCH ×2 (12:27→18:53)
--- NOTE | 2017-10-17 13:59 | Anesthesia-Regional Post-Op ---
Regional Patient Condition Mental Status: Alert, Oriented x3 Circulation: Same as Pre-Op Headache: Absent Sensation: Full Recovery Motor Block: Absent Post Op Complications Complications None Follow Up Care/Instructions Patient Instructions None needed. Anesthesia/Patient Condition Patient is doing well, no complaints, stable vital signs, no apparent adverse anesthesia problems. NALLELY LY DO Oct 17, 2017 13:59
[2017-10-17 17:00] VITALS: BP 124/71
[2017-10-17 20:31] VITALS: BP 116/77
[2017-10-18] MEDS: IBUPROFEN 600 MG (MOTRIN) TAB PO SCH ×3 (00:40→11:37)
[2017-10-18 00:41] VITALS: BP 117/65
[2017-10-18] MEDS ORDERED: ACHD5005 PO (06:22)
[2017-10-18] MEDS ORDERED: IBUP-1773 PO (06:22)
--- NOTE | 2017-10-18 06:25 | Discharge Inst-Women's Service ---
Discharge Inst-Women's Serv Depart Medication/Instructions New, Converted or Re-Newed RX: RX on Chart Final Diagnosis previous section labor antepartum and acute blood loss anemia Consults/Follow Up Additional Follow Up: Yes (1 week with Jose,6 week pp exam) Activity Activity: Activity as Tolerated Driving Instructions: No Driving for 1 Week NO SMOKING: NO SMOKING Nothing Inside Vagina: No Douching, No [place], No Tampons Diet Discharge Diet: No Restrictions Symptoms to Report to : Swelling Increased, Bleeding Excessive, Fever Over 101 Degrees F, Vaginal Bleeding Increase, Cramps in Feet or Legs, Vaginal Discharge Foul For Any Problems or Questions: Contact Your Physician Skin/Wound Care Infection Signs and Symptoms: Increased Redness, Foul Odor of Wound, Increased Drainage, Skin Itchy or Has a Rash, Increased Swelling, Temperature Above 101 F Operative Area Clean and Dry: Keep Incision Clean/Dry Stitches/Maddy/Dermabond: Dermabond Bathing Instructions: LIVIA Arboleda DO Oct 18, 2017 06:24
[2017-10-18 06:33] VITALS: BP 119/73
--- NOTE | 2017-10-18 08:57 | Postpartum Progress Note ---
Post Op Post-operative Day #1 Subjective: Patient is without complaints. Ambulating, voiding after hurt removed. Tolerating a regular diet without nausea or vomiting. Normal lochia. Pain is well controlled with oral pain medications. Passing flatus. bottle feeding. Objective: Vital Sign - Last 12Hours 10/18/17 10/18/17 00:41 06:33 Temp 96.6 98.1 Pulse 82 86 Resp 18 18 B/P (MAP) 117/65 (82) 119/73 (88) Pulse Ox 97 97 O2 Delivery Room Air Room Air Intake and Output 10/17/17 23:59 Intake Total 1640 ml Output Total 2400 ml Balance -760 ml Physical Exam: General - Alert and oriented, no apparent distress Abdomen - Soft, appropriately tender to palpation, non-distended, fundus firm at umbilicus Incision - clean, dry and intact; no erythema or induration, no drainage Extremities - no edema, negative Felicity's bilaterally Assessment: 1. post-operative day # 2, status post RLTCS. Recovering well, hemodynamically stable 2. Acute blood loss anemia Plan: Routine post-operative care. Encourage breast feeding. Encourage ambulation. VTE prophylaxis: SCDs. Ferrous sulfate supplementation. Plan for discharge today or tomorrow Vitals - Labs Vital Signs - I&O Vital Signs Date Time Temp Pulse Resp B/P (MAP) Pulse Ox O2 Delivery O2 Flow Rate FiO2 10/18/17 06:33 98.1 86 18 119/73 (88) 97 Room Air 10/18/17 00:41 96.6 82 18 117/65 (82) 97 Room Air 10/17/17 20:31 97.2 84 18 116/77 (90) 97 Room Air 10/17/17 17:00 97.1 81 18 124/71 (88) 98 Room Air 10/17/17 12:00 98.1 74 16 117/71 (86) 97 Room Air I & O 10/18/17 06:59 Intake Total 1640 ml Output Total 2400 ml Balance -760 ml Labs Microbiology 10/16/17 Urine Culture - Preliminary, Resulted LIVIA LAZARO DO Oct 18, 2017 08:57
[2017-10-18 09:40] VITALS: BP 131/79
[2017-10-18] MEDS: HYDROcodone/APAP 5 MG/325 MG (LORTAB) TAB PO PRN (11:37)
[2017-10-18] MEDS: DOCUSATE SODIUM 100 MG (COLACE) CAP PO SCH (11:37)
[2017-10-18] MEDS: FERROUS SULF 325 MG (IRON) TAB PO SCH (11:37)
[2017-10-18] MEDS ORDERED: INFLUENZA TRIvalent 2017-2018 0.5 ML/45 MCG SYR IM ONE (11:38)
== END 2017-10-18 12:00 | disposition home or self-care (01) | DRG 765 ==
LOC: WSo 09:52 → LDRP 12:05 → WS 16:20
PROVIDERS: ADMIT Obstetrics & Gynecology; ATTEND Obstetrics & Gynecology
PROC: 10D00Z1 Extraction of Products of Conception, Low, Open Approach (ICD-10-PCS; principal; 2017-10-16)
DX: O34.211 Maternal care for low transverse scar from previous cesarean delivery (principal); O99.03 Anemia complicating the puerperium; D62 Acute posthemorrhagic anemia; O99.013 Anemia complicating pregnancy, third trimester; O98.513 Other viral diseases complicating pregnancy, third trimester; B00.9 Herpesviral infection, unspecified; O76 Abnormality in fetal heart rate and rhythm complicating labor and delivery; Z3A.37 37 weeks gestation of pregnancy; Z37.0 Single live birth; Z23 Encounter for immunization
CPT/HCPCS: 36415; 81000; 85025; 86850; 86900; 86901; 87088; 90715; 94664; 99212

== ENCOUNTER → 2019-06-19 | Outpatient (CLI) | payer MEDICAID ==
[~2019-06-19] MED LIST changes: +ACYC400T PO; +FLUT9.9S NS; +SERT50TA2 PO; +TERC20CR VG; +UNISOM25 M1 PO
--- NOTE | 2019-06-19 14:22 | Diagnostic Imaging Report ---
INDICATION: survey. TECHNIQUE: Multiple real-time grayscale images were obtained over the gravid uterus. COMPARISON: None. FINDINGS: There is a single live fetus in a cephalic presentation. heart rate was recorded at 144 beats per minute. Amniotic fluid volume is normal. Placenta is anterior. Cervical length is 5.4 cm. kidneys, bladder, and stomach are unremarkable. brain is unremarkable. There is a four-chamber heart. There is a small echogenic focus in the left ventricle. There is a three-vessel cord with normal insertion. spine is unremarkable. Biometrical measurements are as follows: Biparietal 4.47 cm, age 19 weeks 4 days. Head circumference 17.23 cm, age 19 weeks 6 days. Abdominal circumference 16.41 cm, age 21 weeks 4 days. Femur length 3.31 cm, age 20 weeks 3 days. Sonographic estimate age: 20 weeks 3 days. Sonographic estimated date of delivery: 11/03/2019. Estimated Weight: 377 gm (+/- 55 gm). LMP percentile: 73%. heart rate: 144 beats per minute. number: 1 of 1. IMPRESSION: Single live IUP of approximately 20 weeks 3 days gestational age. The estimated date of confinement sonographically is 11/03/2019. survey is unremarkable, although there is an echogenic intracardiac focus. Followup ultrasound in the third trimester would be recommended. Dictated by: Dictated on workstation # [id number]
== END ==
LOC: RAD 10:20
PROVIDERS: ATTEND Obstetrics & Gynecology
DX: Z36.89 Encounter for other specified antenatal screening (principal); Z3A.20 20 weeks gestation of pregnancy
CPT/HCPCS: 76805

== ENCOUNTER → 2019-09-12 | Outpatient (CLI) | payer MEDICAID, OTHER ==
--- NOTE | 2019-09-12 11:48 | Diagnostic Imaging Report ---
INDICATION: Follow up intracardiac echogenic focus. TECHNIQUE: Multiple real-time grayscale images were obtained over the gravid uterus. COMPARISON: 06/19/2019. FINDINGS: There is a single live fetus in a cephalic presentation. Cardiac activity was measured at 155 beats per minute. Placenta is anterior. Amniotic fluid index is 19.2 cm. Cervical length is 3.8 cm. Intracardiac echogenic focus in the left ventricle is again noted. No other abnormalities are seen. IMPRESSION: Continued intracardiac echogenic focus, similar to prior exam. Dictated by: Dictated on workstation # [id number]
== END ==
LOC: RAD 10:35
PROVIDERS: ATTEND Nurse Practitioner Women's Health
DX: Z36.89 Encounter for other specified antenatal screening (principal)
CPT/HCPCS: 76816

== ENCOUNTER 2019-10-07 08:56 | Inpatient (IN) | payer MEDICAID ==
[~2019-10-07] VITALS: Ht 160 cm; Wt 82.8 kg
--- NOTE | 2019-10-07 09:00 | NUR ---
SANGEETA WILSON presented to unit via ambulation from ED, accompanied by self, with c/o VOMITING/DIARRHEA 35 WKS PREG. SANGEETA WILSON weighed, gowned, voided, and to bed. EFHM and TOCO applied, VS taken. SANGEETA WILSON oriented to bed controls, call light, TV, heat, and A/C controls.
[2019-10-07 09:30] VITALS: BP 119/67
[2019-10-07] MEDS ORDERED: NS IV 1000 ML 1,000 ML ONE (09:47)
[2019-10-07] MEDS ORDERED: PROMETHAZINE INJ 25 MG/ML (PHENERGAN) AMP ONE (09:51)
[2019-10-07] MEDS ORDERED: PROMETHAZINE INJ 25 MG/ML (PHENERGAN) AMP IVP PRN (10:00)
[2019-10-07] MEDS ORDERED: NS IV 1000 ML 1,000 ML IV SCH (10:00)
[2019-10-07 10:41] LABS: BASOPHILS % (AUTO) 0 % (0-10); EOSINOPHILS % (AUTO) 0 % (0-10); HEMATOCRIT 30 % (35-52); HEMOGLOBIN 9.5 G/DL (11.5-16.0); LYMPHOCYTES # (AUTO) 0.6 X 10^3 (1.0-4.0); LYMPHOCYTES % (AUTO) 7 % (12-44); MEAN CORPUSCULAR HEMOGLOBIN 21 PG (25-34); MEAN CORPUSCULAR HGB CONC 31 G/DL (32-36); MEAN CORPUSCULAR VOLUME 68 FL (80-99); MONOCYTES # (AUTO) 0.3 X 10^3 (0.0-1.0); MONOCYTES % (AUTO) 4 % (0-12); NEUTROPHILS # (AUTO) 8.1 X 10^3 (1.8-7.8); NEUTROPHILS % (AUTO) 89 % (42-75); PLATELET COUNT 242 10^3/uL (130-400); RED CELL DISTRIBUTION WIDTH 18.4 % (10.0-14.5); WHITE BLOOD COUNT 9.1 10^3/uL (4.3-11.0)
[2019-10-07 11:07] LABS: ALANINE AMINOTRANSFERASE 12 U/L (0-55); ALBUMIN 3.2 GM/DL (3.2-4.5); ALKALINE PHOSPHATASE 108 U/L (40-136); AMYLASE 65 U/L (25-125); BILIRUBIN,TOTAL 0.6 MG/DL (0.1-1.0); BUN/CREATININE RATIO 16; CALCIUM 8.1 MG/DL (8.5-10.1); CARBON DIOXIDE 19 MMOL/L (21-32); CHLORIDE 106 MMOL/L (98-107); CREATININE SERUM 0.55 MG/DL (0.60-1.30); GFR ESTIMATED > 60; GLUCOSE 74 MG/DL (70-105); LIPASE 33 U/L (8-78); POTASSIUM 3.5 MMOL/L (3.6-5.0); SODIUM 137 MMOL/L (135-145); TOTAL PROTEIN 6.5 GM/DL (6.4-8.2)
[2019-10-07 11:47] LABS: BAND NEUTROPHILS 6 %; BASOPHILS % (MANUAL) 0 %; EOSINOPHILS % (MANUAL) 0 %; LYMPHOCYTES % (MANUAL) 4 %; MONOCYTES % (MANUAL) 1 %; NEUTROPHILS % (MANUAL) 89 %
[2019-10-07 11:48] LABS: ANISOCYTOSIS MARKED; HYPOCHROMASIA SLIGHT; MICROCYTOSIS MODERATE; POLYCHROMASIA SLIGHT
[2019-10-07] MEDS: LACTATED RINGERS 1,000 ML IV SCH ×2 (12:23→20:00)
[2019-10-07] MEDS: ONDANSETRON 4 MG/2 ML (SDV) Z0FRAN IVP PRN (12:23)
[2019-10-07] MEDS ORDERED: BETAMETHASONE ACE/NA PHOS 6 MG/ML (CELESTONE SOLUSPAN) IM SCH (13:30)
[2019-10-07] MEDS: ACETAMINOPHEN 500 MG TAB (TYLENOL) PO PRN (14:00)
[2019-10-07 16:00] VITALS: BP 112/60
[2019-10-07 20:00] VITALS: BP 117/68
[2019-10-08] VITALS (9 sets, daily range): BP systolic 109–130; BP diastolic 58–67
[2019-10-08] MEDS: ONDANSETRON 4 MG/2 ML (SDV) Z0FRAN IVP PRN (00:16)
--- NOTE | 2019-10-08 00:16 | NUR ---
Pt requests nausea medication and crackers after returning to bed from bathroom. Zofran administered, see emar. Crackers provided, education and poc reviewed. Pt to give zofran 10min to work before eating, if nausea is still present rn will return with and admin phenergan and if nausea gone pt can attempt crackers. Pt voiced understanding.
[2019-10-08] MEDS: ACETAMINOPHEN 500 MG TAB (TYLENOL) PO PRN ×2 (02:20→11:17)
[2019-10-08] MEDS: LACTATED RINGERS 1,000 ML IV SCH ×2 (03:13→07:53)
--- NOTE | 2019-10-08 06:15 | NUR ---
Pt voices concern of uti r/t frequency, pt up multiple times throughout the night, 300ml dark eduardo urine noted in hat, when questioned if pt dumped hat without rn knowing pt denied emptying hat on her own. U/A specimen cup left in bathroom, when asked pt reports knowing how to perform sample. To be collected and sent to lab. Physician to be updated.
--- NOTE | 2019-10-08 06:29 | NUR ---
This rn attempted to contact with strip update and uti concerns of pt, no answer, message left.
--- NOTE | 2019-10-08 07:07 | NUR ---
dr murray notified of patient fhr pattern. and recurrent concerns of decelerations in heart rate.
--- NOTE | 2019-10-08 07:13 | NUR ---
This rn attempted to call , no answer, message left.
--- NOTE | 2019-10-08 07:19 | NUR ---
called unit, update given on decel instances, physician reports viewing live strip from home at this time and noted the most recent decel at approx 0712, poc reviewed to c/s pt today. RN reports pt c/o frequency, while up every hour over night to void, 300 total noted in hat for shift with dark eduardo color. Physician reports having u/a ran on arrival that was unconcerning and to f/u on culture of urine. If no culture was ran, resend the u/a. RN voiced understanding. Day shift rn Inocencia on unit and reports dip sticking urine only and not sending specimen to lab. This AM specimen collected around 0630 already sent to lab per this rn, order obtained per , and entered per this rn of a u/a with culture. updated u/a being processed at this time. Physician acknowledged update and reports being en route to hospital.
[2019-10-08 07:28] LABS: BILIRUBIN,URINE NEGATIVE (NEGATIVE); CLARITY,URINE CLEAR; COLOR,URINE YELLOW; GLUCOSE, URINE (UA) NEGATIVE (NEGATIVE); KETONES,URINE 3+ (NEGATIVE); LEUKOCYTE ESTERASE ,URINE NEGATIVE (NEGATIVE); NITRITE,URINE NEGATIVE (NEGATIVE); PROTEIN,URINE TRACE (NEGATIVE)
[2019-10-08] MEDS ORDERED: FAMOTIDINE 20MG/2ML IV (PEPCID) ONE (07:35)
[2019-10-08] MEDS ORDERED: METOCLOPRAMIDE INJ 10 MG/2 ML (REGLAN) ONE (07:35)
[2019-10-08] MEDS ORDERED: CITRIC ACID/SOB CIT (BICITRA) 30 ML UDC ONE (07:35)
[2019-10-08] MEDS ORDERED: ceFAZolin 2 GM/50 ML NS 50 ML ONE ×2 (07:36→07:39)
[2019-10-08 07:38] LABS: BACTERIA,URINE TRACE /HPF; WBC,URINE 0-2 /HPF
[2019-10-08] MEDS ORDERED: fentaNYL INJECTION 100 MCG/2 ML AMP ONE (07:51)
[2019-10-08] MEDS ORDERED: NS IV 500 ML 500 ML IV SCH (08:00)
[2019-10-08] MEDS ORDERED: OXYTOCIN/NORMAL SALINE 1,000 ML IV ONE (08:00)
--- NOTE | 2019-10-08 08:02 | Progress Note ---
Standard Progress Note Progress Notes/Assess & Plan Date Seen by a Provider: Oct 07, 2019 Time Seen by a Provider: 13:00 Progress/Assessment & Plan Patient presents for nausea and vomiting. She has had ill children at home with similar symptoms. She is concerned about dehydration. No cough, no fever, no abdominal pain, no contractions, no vaginal discharge, no urinary symptoms. No diarrhea. She was admitted for observation. Will give IVF and antiemetics and watch. Laboratory Tests Test 10/07/19 10:15 Range/Units White Blood Count 9.1 4.3-11.0 10^3/uL Red Blood Count 4.48 4.35-5.85 10^6/uL Hemoglobin 9.5 L 11.5-16.0 G/DL Hematocrit 30 L 35-52 % Mean Corpuscular Volume 68 L 80-99 FL Mean Corpuscular Hemoglobin 21 L 25-34 PG Mean Corpuscular Hemoglobin Concent 31 L 32-36 G/DL Red Cell Distribution Width 18.4 H 10.0-14.5 % Platelet Count 242 130-400 10^3/uL Mean Platelet Volume 10.0 7.4-10.4 FL Neutrophils (%) (Auto) 89 H 42-75 % Lymphocytes (%) (Auto) 7 L 12-44 % Monocytes (%) (Auto) 4 0-12 % Eosinophils (%) (Auto) 0 0-10 % Basophils (%) (Auto) 0 0-10 % Neutrophils # (Auto) 8.1 H 1.8-7.8 X 10^3 Lymphocytes # (Auto) 0.6 L 1.0-4.0 X 10^3 Monocytes # (Auto) 0.3 0.0-1.0 X 10^3 Eosinophils # (Auto) 0.0 0.0-0.3 10^3/uL Basophils # (Auto) 0.0 0.0-0.1 10^3/uL Neutrophils % (Manual) 89 % Lymphocytes % (Manual) 4 % Monocytes % (Manual) 1 % Eosinophils % (Manual) 0 % Basophils % (Manual) 0 % Band Neutrophils 6 % Polychromasia SLIGHT Hypochromasia SLIGHT Anisocytosis MARKED Microcytosis MODERATE Sodium Level 137 135-145 MMOL/L Potassium Level 3.5 L 3.6-5.0 MMOL/L Chloride Level 106 98-107 MMOL/L Carbon Dioxide Level 19 L 21-32 MMOL/L Anion Gap 12 5-14 MMOL/L Blood Urea Nitrogen 9 7-18 MG/DL Creatinine 0.55 L 0.60-1.30 MG/DL Estimat Glomerular Filtration Rate > 60 BUN/Creatinine Ratio 16 Glucose Level 74 70-105 MG/DL Calcium Level 8.1 L 8.5-10.1 MG/DL Corrected Calcium 8.7 8.5-10.1 MG/DL Total Bilirubin 0.6 0.1-1.0 MG/DL Aspartate Amino Transf (AST/SGOT) 14 5-34 U/L Alanine Aminotransferase (ALT/SGPT) 12 0-55 U/L Alkaline Phosphatase 108 40-136 U/L Total Protein 6.5 6.4-8.2 GM/DL Albumin 3.2 3.2-4.5 GM/DL Amylase Level 65 25-125 U/L Lipase 33 8-78 U/L Lungs CTA HEart RRR Abdomen soft well being is reassuring she is having occasional contractions, but does not seem to notice these. but does state that she has had irregular contractions the past few days at work. Good movement. Final Diagnosis 1. N/V/dehydration 2. 36 1/7 week 3. previous section (repeat planned 10/28) 4. anemia of LIVIA LAZARO DO Oct 08, 2019 08:02
--- NOTE | 2019-10-08 08:10 | History & Physical-OB ---
OB - Chief Complaint & HPI Date/Time Date of Admission: Date of Admission: Oct 08, 2019 at 07:59 Date seen by a Provider: Oct 07, 2019 Time Seen by a Provider: 13:00 Chief Complaint/History OB-Reason for Admission/Chief: decelerations/non reassuring testing Hx : 5 Hx Para: 3 Expected Date of Delivery: Nov 03, 2019 Gestational Age in Weeks: 36 Gestational Age in Days: 2 Indication for : other (Labor, non reassuring testing/decelerations/positive contraction stress test, previous section x 3) Admission Nurse Assessment Rev: Yes Other Patient was admitted for observation yesterday due to nausea and vomiting. She was given antiemetics and IV fluids. WBC was 9 and HGB was 9.5. Other labs wnl. She was improved with fluids and antiemetics. However, she was sanjeev irregularly. States these have been going on for several days but have been irregular. States she has had decreased activity at work due to this. However, the nausea and vomiting started the day of the admission and she was concerned about dehydration as she could not keep anything down. When she had strong contractions she had a small dip in the hearttones. A BPP was done and NORMA was wnl. In addition BPP was 6/8. NST was not reactive due to the decelerations, so plan was made to watch overnight and continue IVF. She was given 1 dose of betamethasone and was to repeat today. She did develop a fever and this was attributed to the Gastroenteritis. UA was negative and lungs clear. Flu was negative. Overnight, she began sanjeev more regularly and would have a small dip with contractions. However about 6:30 she began having stronger contractions that were 3-4 minutes apart rather than irregular. With nearly every contraction the decelerations were present. At 7 am she had a longer and prolonged deceleration. Therefore decision was made to proceed with delivery due to labor and non reassuring testing/positive contraction stress test. Hgb was 9.5 prior to IV Fluids. she is consented for blood transfusion as needed. Appropriate consents were signed. She understands the risks including bleeding, infection, injury to bowel bladder and ureter. In addition, the RN reported that she is now complaining of frequency. She only had a urine dip yesterday but this did not appear to have e infection. No culture was thus done. Will send additional UA with culture. She has started having improved urine output as she has been hydrated however. This may be the cause of the frequency. Has not had further temp since Tylenol yesterday and she has not had further emesis since the promethazine and zofran. though she has complained of nausea. she has had only clear liquids since admission and then it was minimal Allergies and Home Medications Allergies Coded Allergies: Penicillins (Unverified Allergy, Unknown, 10/17/17) PT STATES HAS A FAMILY HX OF PCN ALLERGY SO SHE HASN'T HAD PCN. STATES DOESN'T KNOW WHAT TYPE OF REACTION THEY HAVE HAD. Home Medications Calcium Carbonate 500 Mg Tab.chew, 500 MG PO DAILY, (Reported) Ferrous Sulfate 325 ( Tablet, 325 MG PO HS, (Reported) Vit/Fe Fumarate/Fa 1 Each Tablet, 1 TAB PO HS, (Reported) Sertraline HCl 50 Mg Tablet, 50 MG PO DAILY, (Reported) Patient Home Medication List Home Medication List Reviewed: Yes OB - History Hx of Present Care: Yes Ultrasounds: Normal mid trimester US Obstetrical Complications: None Medical Complications: None Obstetrical History Hx : 5 Hx Para: 3 Hx Termination: No Hx Total # of Abortions (Spona: 1 Hx Multiple Gestation: No Hx Induced Hypertens: Yes (induced due to ) Delivery History Hx Section: Yes (2) Hx Blood Disorders: Yes (ANEMIA WITH THIS ) Patient Past Medical History NC Social History/Family History HIV/AIDS: No Recent Infectious Disease Expo: No 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, 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) Alcohol Use: Occasionally Uses Recreational Drug Use: No 2nd Hand Smoke Exposure: No Immunizations Hepatitis A: No Hepatitis B: No Tetanus Booster (TDap): More than 5yrs Date of Influenza Vaccine: Aug 06, 2019 OB - Admission Exam Physical Exam Vitals: Vital Signs 10/07/19 10/07/19 10/08/19 09:30 20:00 03:00 Temp 36.1 Pulse 74 Resp 18 B/P (MAP) 111/61 (78) Pulse Ox 98 O2 Delivery Room Air HEENT: NCAT Heart: Rhythm Normal Lungs: Clear Abdomen: Gravid Extremities: Normal Reflexes: Normal Cervical Dilatation: other (declined) Heart Rate: 140's Accelerations: Accelerations Present Decelerations: Prolonged Decelerations Short Term Variability: Present Contractions on Admission: < 5 Minutes Apart Labs Laboratory Tests Test 10/07/19 10:15 10/08/19 06:30 Range/Units White Blood Count 9.1 4.3-11.0 10^3/uL Red Blood Count 4.48 4.35-5.85 10^6/uL Hemoglobin 9.5 L 11.5-16.0 G/DL Hematocrit 30 L 35-52 % Mean Corpuscular Volume 68 L 80-99 FL Mean Corpuscular Hemoglobin 21 L 25-34 PG Mean Corpuscular Hemoglobin Concent 31 L 32-36 G/DL Red Cell Distribution Width 18.4 H 10.0-14.5 % Platelet Count 242 130-400 10^3/uL Mean Platelet Volume 10.0 7.4-10.4 FL Neutrophils (%) (Auto) 89 H 42-75 % Lymphocytes (%) (Auto) 7 L 12-44 % Monocytes (%) (Auto) 4 0-12 % Eosinophils (%) (Auto) 0 0-10 % Basophils (%) (Auto) 0 0-10 % Neutrophils # (Auto) 8.1 H 1.8-7.8 X 10^3 Lymphocytes # (Auto) 0.6 L 1.0-4.0 X 10^3 Monocytes # (Auto) 0.3 0.0-1.0 X 10^3 Eosinophils # (Auto) 0.0 0.0-0.3 10^3/uL Basophils # (Auto) 0.0 0.0-0.1 10^3/uL Neutrophils % (Manual) 89 % Lymphocytes % (Manual) 4 % Monocytes % (Manual) 1 % Eosinophils % (Manual) 0 % Basophils % (Manual) 0 % Band Neutrophils 6 % Polychromasia SLIGHT Hypochromasia SLIGHT Anisocytosis MARKED Microcytosis MODERATE Sodium Level 137 135-145 MMOL/L Potassium Level 3.5 L 3.6-5.0 MMOL/L Chloride Level 106 98-107 MMOL/L Carbon Dioxide Level 19 L 21-32 MMOL/L Anion Gap 12 5-14 MMOL/L Blood Urea Nitrogen 9 7-18 MG/DL Creatinine 0.55 L 0.60-1.30 MG/DL Estimat Glomerular Filtration Rate > 60 BUN/Creatinine Ratio 16 Glucose Level 74 70-105 MG/DL Calcium Level 8.1 L 8.5-10.1 MG/DL Corrected Calcium 8.7 8.5-10.1 MG/DL Total Bilirubin 0.6 0.1-1.0 MG/DL Aspartate Amino Transf (AST/SGOT) 14 5-34 U/L Alanine Aminotransferase (ALT/SGPT) 12 0-55 U/L Alkaline Phosphatase 108 40-136 U/L Total Protein 6.5 6.4-8.2 GM/DL Albumin 3.2 3.2-4.5 GM/DL Amylase Level 65 25-125 U/L Lipase 33 8-78 U/L Urine Color YELLOW Urine Clarity CLEAR Urine pH 6.0 5-9 Urine Specific [place] >=1.030 1.016-1.022 Urine Protein TRACE NEGATIVE Urine Glucose (UA) NEGATIVE NEGATIVE Urine Ketones 3+ H NEGATIVE Urine Nitrite NEGATIVE NEGATIVE Urine Bilirubin NEGATIVE NEGATIVE Urine Urobilinogen 1.0 < = 1.0 MG/DL Urine Leukocyte Esterase NEGATIVE NEGATIVE Urine RBC (Auto) NEGATIVE NEGATIVE Urine RBC NONE /HPF Urine WBC 0-2 /HPF Urine Squamous Epithelial Cells 2-5 /HPF Urine Crystals NONE /LPF Urine Bacteria TRACE /HPF Urine Casts NONE /LPF Urine Mucus SMALL H /LPF Urine Culture Indicated CULTURE PENDING OB - Assessment/Plan/Diagnosis Assessment Assessment: labor, other (non reassuring testing previous section) Admission Dx 1. Nausea/emesis/dehydration 2. previous section Admission Status: Inpatient Order (span 2 midnights) Reason for Inpatient Admission: section Plan Plan: Section, Other (she was admitted for observation yesterday. Now will plan repeat section due to labor, non reassuring testing. Risks associated with surgery include injury, infection, injury to bowel, bladder and ureter. These risks are explained. She has signed appropriate consent forms. She has received the first of two doses of betamethasone, but with the decelerations, it is imperative to proceed with at this time rather than allow for further compromise. Antibiots/Ancef has been given. SCDs will be used. ) LIVIA LAZARO DO Oct 08, 2019 08:10
--- NOTE | 2019-10-08 08:29 | Diagnostic Imaging Report ---
INDICATION: VARIABLES ON STRIP, alterations in heart rate COMPARISON: None available. Biophysical Profile Score: Movement: 2 Breathin Tone: 2 Fluid: 2 Total: 05/01 Heart Rate: 156 BPM Presentation is cephalic. Placenta is anterior in position. NORMA is 14.36cm. The single largest vertical pocket is 6.2 cm. IMPRESSION: 1. breathing was not identified during this examination giving a biophysical profile score of 6/8. Dictated by: Dictated on workstation # [id number]
[2019-10-08] MEDS ORDERED: ONDANSETRON 4 MG/2 ML (SDV) Z0FRAN ONE (08:31)
[2019-10-08] MEDS ORDERED: BUPIVACAINE 0.5% 30 ML (SENSORCAINE) VIAL ONE (08:41)
[2019-10-08] MEDS ORDERED: OXYTOCIN/NORMAL SALINE 500 ML IV SCH (09:04)
--- NOTE | 2019-10-08 09:10 | Cesarean Section Operative ---
Procedure Procedure Note Pre-operative Diagnosis: Milagro cook (28 /Para 5 / 3, Gestational Age 36 2/7 with labor, non reassuring status )decelerations), positive contraction stress test, previous section. Post-operative Diagnosis: same, uterine window Procedure: repeat low transverse section Physician: LIVIA LAZARO Estimated blood loss: 300 mL Disposition: stable Findings: Viable female , Apgars 9/9, weight 6#11ounces, intact placenta, 3vc, normal appearing uterus, tubes, and ovaries. Uterine window about 6x6 cm Indications:Milagro cook 28 /Para 5 / 3,Gestational Age 36 2/7 with labor, non reassuring status )decelerations), positive contraction stress test, previous section. Procedure Details: The patient was seen in pre-op and the procedure was discussed with the patient in full, including the risks, benefits, and alternatives. All questions were answered. The patient was taken to the operating room and a time out was performed, verifying patient and procedure. After spinal anesthesia was placed by our anesthesia colleagues, the patient was placed in the dorsal supine with leftward tilt for uterine displacement.~ Her abdomen was then prepped and draped in the typical sterile fashion. A Pfannenstiel skin incision was made using a scalpel and carried down through the underlying fascia. The fascia was incised in the midline and tented up using Clement clamps. On both the inferior and superior fascia side the rectus muscle was dissected off bluntly and sharply using Covington scissors. There was thickening and scarring from the previous section. The peritoneum was identified and entered bluntly in the midline. This was then stretched laterally using manual strength. After entering the abdominal cavity and confirming lack of intraperitoneal adhesions, a large Dionicio retractor was placed and the lower uterine segment was visualized. A bladder flap was created with the use of Metzenbaum scissors.~ There was extensive adhesion of the bladder over the lower uterine segment. There was a large uterine window noted beneath this (about 6 x 6 cm). A scalpel was utilized to make a low transverse uterine incision. I entered directly into the amniotic sac. Amniotomy was performed with an Allis clamp with return of clear fluid. The 's head was grasped and brought to the level of the incision. Fundal pressure was applied and was delivered without difficulty. Mouth and nares were suctioned with bulb suction. After the umbilical cord was clamped and cut, the was handed off to the pediatric staff. A sample of cord blood was then obtained. The placenta was delivered intact via uterine massage. The uterus was cleared of all clots and debris. The uterine incision was closed using 0 Vicryl in a running locked fashion. A second imbricated layer was placed using 0 Vicryl in a running fashion as well. The bilateral tubes and ovaries appeared normal. The abdominal gutters were cleared of all clots and debris. A final check of the uterine incision showed it to be hemostatic. The peritoneum was closed using 3-0 Vicryl in a running fashion. The fascia was closed with 0 Vicryl in a running fashion. The subcutaneous space was hemostatic, and irrigated. The subcutaneous space was closed with 3-0 Vicryl in several single interrupted stitches. The skin was then closed using 4-0 Monocryl in a running subcuticular fashion. The skin edges were reapproximated together and were hemostatic. A pressure dressing was applied. All sponge, lap and needle counts were correct at the end of the procedure per nursing. Vitals - Labs Vital Signs - I&O Vital Signs Date Time Temp Pulse Resp B/P (MAP) Pulse Ox O2 Delivery O2 Flow Rate FiO2 10/08/19 03:00 74 18 111/61 (78) Room Air 10/07/19 20:00 36.1 96 18 117/68 (84) Room Air 10/07/19 16:00 36.2 99 20 112/60 (77) Room Air 10/07/19 14:00 38.1 10/07/19 09:30 36.7 100 20 98 Room Air Labs Laboratory Tests 10/07/19 10:15: White Blood Count 9.1, Red Blood Count 4.48, Hemoglobin 9.5L, Hematocrit 30L, Mean Corpuscular Volume 68L, Mean Corpuscular Hemoglobin 21L, Mean Corpuscular Hemoglobin Concent 31L, Red Cell Distribution Width 18.4H, Platelet Count 242, Mean Platelet Volume 10.0, Neutrophils (%) (Auto) 89H, Lymphocytes (%) (Auto) 7L , Monocytes (%) (Auto) 4, Eosinophils (%) (Auto) 0, Basophils (%) (Auto) 0, Neutrophils # (Auto) 8.1H, Lymphocytes # (Auto) 0.6L, Monocytes # (Auto) 0.3, Eosinophils # (Auto) 0.0, Basophils # (Auto) 0.0, Neutrophils % (Manual) 89, Lymphocytes % (Manual) 4, Monocytes % (Manual) 1, Eosinophils % (Manual) 0, Basophils % (Manual) 0, Band Neutrophils 6, Polychromasia SLIGHT, Hypochromasia SLIGHT, Anisocytosis MARKED, Microcytosis MODERATE, Sodium Level 137, Potassium Level 3.5L, Chloride Level 106, Carbon Dioxide Level 19L, Anion Gap 12, Blood Urea Nitrogen 9, Creatinine 0.55L, Estimat Glomerular Filtration Rate > 60, BUN/Creatinine Ratio 16, Glucose Level 74, Calcium Level 8.1L, Corrected Calcium 8.7, Total Bilirubin 0.6, Aspartate Amino Transf (AST/SGOT) 14, Alanine Aminotransferase (ALT/SGPT) 12, Alkaline Phosphatase 108, Total Protein 6.5, Albumin 3.2, Amylase Level 65, Lipase 33 10/08/19 06:30: Urine Color YELLOW, Urine Clarity CLEAR, Urine pH 6.0, Urine Specific [place] >=1.030, Urine Protein TRACE, Urine Glucose (UA) NEGATIVE, Urine Ketones 3+H, Urine Nitrite NEGATIVE, Urine Bilirubin NEGATIVE, Urine Urobilinogen 1.0, Urine Leukocyte Esterase NEGATIVE, Urine RBC (Auto) NEGATIVE, Urine RBC NONE, Urine WBC 0-2, Urine Squamous Epithelial Cells 2-5, Urine Crystals NONE, Urine Bacteria TRACE, Urine Casts NONE, Urine Mucus SMALLH, Urine Culture Indicated CULTURE PENDING Microbiology 10/07/19 Influenza Types A,B Antigen (TIHERNO) - Final, Complete LIVIA LAZARO DO Oct 08, 2019 09:09
[2019-10-08] MEDS ORDERED: PROMETHAZINE INJ 25 MG/ML (PHENERGAN) AMP IVP PRN (09:15)
[2019-10-08] MEDS ORDERED: morphine INJ 4 MG/ML 1 ML (VIAL/SYRINGE) IVP PRN (09:15)
[2019-10-08] MEDS ORDERED: TETANUS,DIPTH,PERTUSS P/F (BOOSTRIX) 0.5 ML VIAL IM SCH (09:15)
[2019-10-08] MEDS ORDERED: MEASLES,MUMPS,RUBELLA 1 EA INJ SC SCH (09:15)
[2019-10-08] MEDS ORDERED: ONDANSETRON 4 MG/2 ML (SDV) Z0FRAN IVP PRN (09:15)
[2019-10-08] MEDS ORDERED: OXC5T PO (09:16)
[2019-10-08] MEDS ORDERED: IBUP-844 PO (09:16)
[2019-10-08] MEDS ORDERED: ACET-93 PO (09:16)
[2019-10-08] MEDS ORDERED: FERR-84 PO (09:16)
[2019-10-08] MEDS ORDERED: DOCU100C37 PO (09:16)
[2019-10-08] MEDS ORDERED: diphenhydrAMINE 50 MG/ML INJ (BENADRYL) IV PRN (09:30)
[2019-10-08] MEDS ORDERED: ONDANSETRON 4 MG/2 ML (SDV) Z0FRAN IV PRN (09:30)
[2019-10-08] MEDS ORDERED: NALOXONE 0.4 MG/ML 1 ML (NARCAN) VIAL IV PRN (09:30)
--- NOTE | 2019-10-08 10:20 | NUR ---
pt transferred to OB unit via bed with this RN, infant and mother @ side. call light within reach.
--- NOTE | 2019-10-08 10:53 | NUR ---
report given to HANNA Turner.
--- NOTE | 2019-10-08 10:55 | NUR ---
report from Richelle quiles RN.
[2019-10-08] MEDS: KETOROLAC 30 MG/ML VIAL IV SCH ×2 (11:18→16:59)
[2019-10-08] MEDS: ACETAMINOPHEN 500 MG TAB (TYLENOL) PO SCH (11:18)
[2019-10-08] MEDS ORDERED: CATHETER FLUSH 10 ML SYR IV SCH (14:00)
[2019-10-08] MEDS: DOCUSATE SODIUM 100 MG (COLACE) CAP PO SCH (21:33)
[2019-10-08] MEDS: SERTRALINE 50 MG (ZOLOFT) TABLET PO SCH (21:33)
[2019-10-09 00:15] VITALS: BP 110/60
[2019-10-09] MEDS: KETOROLAC 30 MG/ML VIAL IV SCH ×2 (00:19→06:46)
[2019-10-09 04:27] VITALS: BP 108/71
[2019-10-09 05:36] LABS: BASOPHILS % (AUTO) 0 % (0-10); EOSINOPHILS # (AUTO) 0.1 10^3/uL (0.0-0.3); EOSINOPHILS % (AUTO) 1 % (0-10); HEMATOCRIT 24 % (35-52); HEMOGLOBIN 7.3 G/DL (11.5-16.0); LYMPHOCYTES % (AUTO) 18 % (12-44); MEAN CORPUSCULAR HEMOGLOBIN 21 PG (25-34); MEAN CORPUSCULAR HGB CONC 30 G/DL (32-36); MEAN CORPUSCULAR VOLUME 69 FL (80-99); MEAN PLATELET VOLUME 9.6 FL (7.4-10.4); MONOCYTES # (AUTO) 0.9 X 10^3 (0.0-1.0); MONOCYTES % (AUTO) 8 % (0-12); NEUTROPHILS # (AUTO) 8.4 X 10^3 (1.8-7.8); NEUTROPHILS % (AUTO) 74 % (42-75); PLATELET COUNT 203 10^3/uL (130-400); RED CELL DISTRIBUTION WIDTH 18.6 % (10.0-14.5); WHITE BLOOD COUNT 11.3 10^3/uL (4.3-11.0)
[2019-10-09 08:45] VITALS: BP 121/59
--- NOTE | 2019-10-09 08:45 | NUR ---
A.M. ASSESSMENT COMPLETED. VSS. CARING FOR IN ROOM. GRANDMOTHER ALSO IN ROOM.
[2019-10-09] MEDS: DOCUSATE SODIUM 100 MG (COLACE) CAP PO SCH ×2 (09:06→21:08)
[2019-10-09] MEDS: ACETAMINOPHEN 500 MG TAB (TYLENOL) PO SCH ×2 (09:06→17:04)
--- NOTE | 2019-10-09 10:20 | NUR ---
INFANT RETURNED TO MOM AFTER INTERVENTIONS.
[2019-10-09] MEDS ORDERED: IBUPROFEN 600 MG (MOTRIN) TAB PO ONE (11:56)
[2019-10-09 12:00] VITALS: BP 118/69
--- NOTE | 2019-10-09 12:00 | NUR ---
CARING FOR INFANT IN ROOM. ENCOURAGED TO TRY TO GET TO EAT MORE AT EACH FEEDING IF POSSIBLE.
[2019-10-09] MEDS: IBUPROFEN 600 MG (MOTRIN) TAB PO SCH ×3 (12:24→17:43)
[2019-10-09 16:30] VITALS: BP 116/60
--- NOTE | 2019-10-09 16:30 | NUR ---
CONTINUES TO DO WELL. CARING FOR INFANT IN ROOM. VSS.
--- NOTE | 2019-10-09 18:30 | NUR ---
EATING DINNER. VOICES NO COMPLAINTS.
[2019-10-09 21:05] VITALS: BP 112/55
[2019-10-09] MEDS: SERTRALINE 50 MG (ZOLOFT) TABLET PO SCH (21:08)
[2019-10-10 00:36] VITALS: BP 112/66
[2019-10-10] MEDS: IBUPROFEN 600 MG (MOTRIN) TAB PO SCH ×3 (00:38→11:47)
[2019-10-10] MEDS: ACETAMINOPHEN 500 MG TAB (TYLENOL) PO SCH ×2 (00:39→08:05)
[2019-10-10 05:51] VITALS: BP 111/74
[2019-10-10 08:00] VITALS: BP 119/65
--- NOTE | 2019-10-10 08:00 | NUR ---
A.M. ASSESSMENT COMPLETED. VSS. CARING FOR IN ROOM.
[2019-10-10] MEDS: DOCUSATE SODIUM 100 MG (COLACE) CAP PO SCH (08:04)
--- NOTE | 2019-10-10 10:30 | NUR ---
CONTINUES TO CARE FOR IN ROOM. GOOD INTERACTION NOTED.
--- NOTE | 2019-10-10 11:04 | Discharge Inst-Women's Service ---
Discharge Inst-Women's Serv Depart Medication/Instructions New, Converted or Re-Newed RX: Other Consults/Follow Up Additional Follow Up: Yes (Return to clinic in 1 week for incision check and again in 6 weeks for appt) Activity Activity: Activity as Tolerated Driving Instructions: No Driving for 1 Week NO SMOKING: NO SMOKING Nothing Inside Vagina: No Douching, No [place], No Tampons Diet Discharge Diet: No Restrictions Symptoms to Report to : Pain Increased, Fever Over 101 Degrees F, Vaginal Bleeding Increase, Questions/Concerns For Any Problems or Questions: Contact Your Physician Skin/Wound Care Infection Signs and Symptoms: Increased Redness, Foul Odor of Wound, Increased Drainage, Skin Itchy or Has a Rash, Increased Swelling, Temperature Above 101 F Operative Area Clean and Dry: Keep Incision Clean/Dry Stitches/[place]/Dermabond: Dermabond Bathing Instructions: CHON Horn APRN Oct 10, 2019 11:04
--- NOTE | 2019-10-10 11:21 | Postpartum Progress Note ---
Note Note Day # 2 Subjective: Patient is without complaints. Ambulating, voiding. Tolerating a regular diet without nausea or vomiting. Normal lochia. Pain is well controlled with oral pain medications. Bottle feeding. Objective: Patient sitting up in bed, holding baby. Ambulating w/o difficulty. Incision c/d/i, abdomen soft, non-tender, non-distended. Physical Exam: General - Alert and oriented, no apparent distress Abdomen - Soft, appropriately tender to palpation, non-distended, fundus firm at umbilicus Extremities - no edema, negative Felicity's bilaterally Assessment: Post- day # 2, status post RLTCS. Recovering well, hemodynamically stable Plan: Routine care. Encourage breast feeding. Encourage ambulation. Ferrous sulfate supplementation. Plan for discharge today Patient may room-in d/t delayed infant DC Vitals - Labs Vital Signs - I&O Vital Signs Date Time Temp Pulse Resp B/P (MAP) Pulse Ox O2 Delivery O2 Flow Rate FiO2 10/10/19 08:00 36.5 82 18 119/65 (83) 98 Room Air 10/10/19 05:51 36.4 69 16 111/74 (86) 100 Room Air 10/10/19 00:36 36.9 68 20 112/66 (81) 98 Room Air 10/09/19 21:05 36.5 71 16 112/55 (74) 97 Room Air 10/09/19 16:30 36.5 68 18 116/60 (78) 96 Room Air 10/09/19 12:00 36.5 68 18 118/69 (85) 98 Room Air I & O 10/10/19 07:00 Intake Total 2340 ml Output Total 1900 ml Balance 440 ml Labs Microbiology 10/08/19 Urine Culture - Final, Complete NO GROWTH 10/07/19 Influenza Types A,B Antigen (THIERNO) - Final, Complete CHON WITT [employer] PL[employer]NER Oct 10, 2019 11:20
--- NOTE | 2019-10-10 13:40 | NUR ---
DISCHARGE INSTRUCTIONS REVIEWED WITH PT AND COPY GIVEN. STATES UNDERSTANDING OF ALL INSTRUCTIONS AND NEED TO F/U SCHEDULED AND NEEDED. DISMISSED FROM WS IN STABLE CONDITION. PT WILL REMAIN IN PT ROOM A ROOMING IN MOM R/T HAVING TO STAY A PT. Addendum: 10/10/19 at 1933 by AURELIA MARKS RN TIME SHOULD SAY 1425 R/T PT NOT HAVING HER PRESCRIPTIONS YET.
[2019-10-10 14:25] VITALS: BP 130/75
--- NOTE | 2019-10-12 09:16 | Short Stay Summary ---
Discharge Summary Hospital Course Hospital Course Date of Admission: Oct 08, 2019 at 07:59 Admission Diagnosis : Family Physician/Provider: Janet,Local Physician Date of Discharge: 10/12/19 Discharge Diagnosis: [ ] Hospital Course: [ ] Labs and Pending Lab Test: Microbiology 10/08/19 Urine Culture - Final, Complete NO GROWTH 10/07/19 Influenza Types A,B Antigen (THIERNO) - Final, Complete Home Meds Active Iron (Ferrous Sulfate) 325 Mg Tablet 325 Mg PO BID Oxycodone IR (Oxycodone HCl) 5 Mg Tab 5 Mg PO Q4HR PRN Acetaminophen 500 Mg Tablet 1,000 Mg PO Q8HR Docusate Sodium 100 Mg Capsule 100 Mg PO BID Ibu (Ibuprofen) 600 Mg Tablet 600 Mg PO Q6HR Reported Zoloft (Sertraline HCl) 50 Mg Tablet 50 Mg PO DAILY Calcium (Calcium Carbonate) 500 Mg Tab.chew 500 Mg PO DAILY Iron (Ferrous Sulfate) 325 ( Tablet 325 Mg PO HS Prenaplus Tablet ( Vit/Fe Fumarate/Fa) 1 Each Tablet 1 Tab PO HS Discharge Instructions Discharge Diet: No Restrictions Discharge Physical Examination Allergies: Coded Allergies: Penicillins (Unverified Allergy, Unknown, 10/17/17) PT STATES HAS A FAMILY HX OF PCN ALLERGY SO SHE HASN'T HAD PCN. STATES DOESN'T KNOW WHAT TYPE OF REACTION THEY HAVE HAD. Discharge Summary Date of Admission Oct 08, 2019 at 07:59 Date of Discharge Oct 10, 2019 at 14:25 Discharge Date: Oct 10, 2019 Clinical Quality Measures DVT/VTE Risk/Contraindication: Risk Factor Score Per Nursin RFS Level Per Nursing on Admit: 3=High LIVIA LAZARO DO Oct 12, 2019 09:16
== END 2019-10-10 14:25 | disposition home or self-care (01) | DRG 788 ==
LOC: LDRP 08:56 → WSo 08:56 → LDRP 10-08 07:59
PROVIDERS: ADMIT Obstetrics & Gynecology; ATTEND Obstetrics & Gynecology
PROC: 10D00Z1 Extraction of Products of Conception, Low, Open Approach (ICD-10-PCS; principal; 2019-10-08 08:05)
DX: O76 Abnormality in fetal heart rate and rhythm complicating labor and delivery (principal); O99.284 Endocrine, nutritional and metabolic diseases complicating childbirth; E86.0 Dehydration; O99.02 Anemia complicating childbirth; D64.9 Anemia, unspecified; O34.211 Maternal care for low transverse scar from previous cesarean delivery; Z3A.36 36 weeks gestation of pregnancy; Z37.0 Single live birth
CPT/HCPCS: 36415; 76819; 80053; 81000; 82150; 83690; 85007; 85025; 85027; 86850; 86900; 86901; 86920; 87088; 87804; 94664; 99212